=== PATIENT | male | born 1950 | race Caucasian/White ===

== ENCOUNTER 2020-10-07 09:05 | Outpatient (RCR) | payer OTHER | END 2020-10-22 17:00 | disposition home or self-care (01) | LOC: PT 09:05 | DX: M25.511 Pain in right shoulder (principal) ==

== ENCOUNTER 2020-12-03 12:51 | Outpatient (RCR) | payer OTHER | END 2021-03-03 | disposition still patient (30) | LOC: PT | DX: S46.011A Strain of muscle(s) and tendon(s) of the rotator cuff of right shoulder, initial encounter (principal) ==